=== PATIENT | male | born 1955 | race Native Hawaiian/Other Pacific Islander ===

== ENCOUNTER 2023-04-28 12:34 | Emergency (ER) | payer OTHER ==
[~2023-04-28] VITALS: Ht 180.3 cm; Wt 140.0 kg
[2023-04-28 12:35] VITALS: TEMP 97.5
[2023-04-28] MEDS ORDERED: METF-1211 PO (12:39)
[2023-04-28] MEDS ORDERED: ASPI325T87 PO (12:39)
[2023-04-28] MEDS ORDERED: AMLO-257 PO (12:39)
[2023-04-28] MEDS ORDERED: ATOR20TA PO (12:39)
[2023-04-28] MEDS ORDERED: [UNRECOGNIZED DRUG - OTHER] PO (12:39)
[2023-04-28] MEDS ORDERED: BISO5TAB33 PO (12:39)
[2023-04-28] MEDS ORDERED: INSLAN SQ (12:39)
[2023-04-28] MEDS ORDERED: AMOX-426 PO (12:41)
[2023-04-28 12:49] VITALS: BP 108/88; PULSE 88; RESP 16
[2023-04-28] MEDS ORDERED: CEPH-558 PO (13:38)
[2023-04-28] MEDS ORDERED: SULF-261 PO (13:38)
== END 2023-04-28 13:44 | disposition home or self-care (01) ==
LOC: EMS 12:35
DX: L03.115 Cellulitis of right lower limb (principal); E11.9 Type 2 diabetes mellitus without complications; E78.00 Pure hypercholesterolemia, unspecified; I10 Essential (primary) hypertension; Z87.891 Personal history of nicotine dependence; Z90.49 Acquired absence of other specified parts of digestive tract
CPT/HCPCS: 99283; Z7502